=== PATIENT | female | born 2000 | race Hispanic/Latino ===

== ENCOUNTER 2019-01-31 09:03 | Day surgery (SDC) | payer BC ==
--- NOTE | 2019-01-31 09:40 | Anesthesia Day of Surgery ---
Anesthesia Day of Surgery - Day of Surgery Patient Examined: Yes Patient H&P Reviewed: Yes Patient is NPO: Yes
--- NOTE | 2019-01-31 09:40 | Anesthesia Consultation ---
Anesthesia Consult and Med Hx Date of service: 01/31/19 - Airway Anesthetic Teeth Evaluation: Good ROM Head & Neck: Adequate Mental/Hyoid Distance: Adequate Mallampati Class: Class II Intubation Access Assessment: Probably Good - Pulmonary Exam CTA: Yes - Cardiac Exam Cardiac Exam: RRR - Pre-Operative Health Status ASA Pre-Surgery Classification: ASA2 Proposed Anesthetic Plan: General, MAC - Pulmonary Hx Asthma: Yes (Haven't been treated in years) - Central Nervous System Hx Psychiatric Problems: Yes - Other Systems Hx Alcohol Use: Yes (Occas) Hx Substance Use: Yes (Marijuana daily) Hx Cancer: No
[2019-01-31] MEDS ORDERED: LACTATED RINGERS 1,000 ML IV SCH (10:00)
[2019-01-31] MEDS ORDERED: VERSED IV NR (10:00)
[2019-01-31] MEDS ORDERED: SUBLIMAZE ONE (10:20)
[2019-01-31] MEDS ORDERED: DIPRIVAN 10 MG/ML IV ONE (10:21)
[2019-01-31] MEDS ORDERED: XYLOCAINE CARDIAC IV ONE (10:22)
[2019-01-31] MEDS ORDERED: XYLOCAINE MPF 2% ONE (10:22)
[2019-01-31] MEDS ORDERED: ANCEF/STERILE WATER 2 GM/20 ML IV NR (11:00)
[2019-01-31] MEDS ORDERED: NACL 0.9% IR ONE (11:41)
[2019-01-31] MEDS ORDERED: ZOFRAN IV PRN (12:26)
[2019-01-31] MEDS ORDERED: DILAUDID IV PRN (12:26)
--- NOTE | 2019-01-31 12:45 | Operative Report ---
Operative Report Operative Report: Date of surgery: 01/31/2019 Admitting diagnosis: Lost IUD Procedure: 1 examination under anesthesia 2. Hysteroscopy 3. IUD removal. Surgeon: C.C.MD Primo Anesthesiologist:Carlos Olivares MD Anesthesia: IV sedation Estimated blood loss: 0 Complications: None. Findings: The vulva and vagina were grossly normal cervix was healthy. Both adnexa were within normal limits. The uterus was anteverted and sounded to 5 cm. The strings of the IUD were snagged cervical canal using a pair of long Yoko's. Procedure in details: The patient was taken to the operating room after emptying her bladder in the holding room. She was placed in the straight supine position and given intravenous sedation. The patient was also given 2 g of Ancef. Patient was then put in a lithotomy position and prepped and the vagina and lower abdomen. The drapes were placed. A timeout was done. With the go-ahead from the anesthesiologist the procedure started with a bimanual examination of the pelvis. The findings have been reported above. Next a bivalved vaginal speculum was inserted to expose the cervix. This was then held with a single tooth tenaculum forceps. The uterine cavity was sounded and measured 5 cm. A pair of long Yoko's forceps was then passed, without dilatation, into the cervical canal and without difficulty and the strings of the IUD were snagged. The base of the canal was subsequently dilated with a 17 Holt dilator to allow passage of the hysteroscope. The hysteroscope was then inserted to inspect the endometrial cavity which was found to contain no further foreign objects. Pictures were taken. The recurrent IUD was ordered sent for pathological examination. All sponges and instruments were accounted for. There was no bleeding during this procedure. There were no complications. The patient was transferred safely to the recovery room I was expected to go home that she fully woke up from IV sedation.
[2019-01-31 12:56] VITALS: BP 103/50
--- NOTE | 2019-01-31 15:20 | Post Anesthesia Evaluation ---
- Post Anesthesia Evaluation Patient Participated: Yes Airway Patent: Yes Stable Respiratory Function: Yes Nausea/Vomiting: No Temp > 96.8F: Yes Pain Manageable: Yes Adequeate Hydration: Yes Anesthesia Complications: No Block Receding Appropriately: Not Applicable Patient on Ventilator: No
== END 2019-01-31 13:30 | disposition home or self-care (01) ==
LOC: OR 09:03
PROVIDERS: ATTEND Obstetrics & Gynecology
DX: T83.39XA Other mechanical complication of intrauterine contraceptive device, initial encounter (principal); G43.909 Migraine, unspecified, not intractable, without status migrainosus; J45.909 Unspecified asthma, uncomplicated; Z72.89 Other problems related to lifestyle; Z88.6 Allergy status to analgesic agent; Z88.5 Allergy status to narcotic agent; Z98.890 Other specified postprocedural states; Y92.89 Other specified places as the place of occurrence of the external cause; Y83.8 Other surgical procedures as the cause of abnormal reaction of the patient, or of later complication, without mention of misadventure at the time of the procedure
CPT/HCPCS: 58562; 81025; 88300; A4217; J2001; J2250; J2704; J3010; J7120; 88302